=== PATIENT | female | born 1975 | race African-American/Black ===

== ENCOUNTER → 2017-04-30 | Outpatient (CLI) | payer OTHER ==
--- NOTE | ~2017-04-30 | US6 ---
[facility] A Service of [facility] & [facility] RADIOLOGY TEXT RESULTS PATIENT: MANUEL LAM LOCATION: [facility] : 79 UNIT #: [id number] AGE: [address]: Betty Buckner MD SEX: F ORDER DR: [id number] [facility] [address] [place], [place] [address] [id number] O MR#: [id number] Acc #: [id number] NAME: MANUEL LAM : 1975 SEX: F STUDY DATE/TIME: 04/30/2017 9:51 UNIT: [facility] ROOM: STUDY DESCRIPTION: US Abdominal Limited Attending Physician: Betty Buckner M.D. Ordering Physician: Betty Buckner M.D. Primary Care Physician: Betty Buckner M.D. MEDICAL IMAGING REPORT This report is preliminary unless electronic signature is present EXAM Right upper quadrant ultrasound, 04/30/2017. HISTORY Abnormally elevated liver enzymes, labs drawn 1 week ago. Abdominal bloating and distension for 1 week. FINDINGS The liver is homogeneous in echotexture and demonstrates no cystic or solid mass lesions. The intra and extrahepatic bile ducts are not dilated. The gallbladder is surgically absent as per patient history. The common duct measures 4 mm. The pancreas and right kidney are normal. IMPRESSION Surgical absence of the gallbladder. Otherwise, negative right upper quadrant ultrasound. Dictated by... Hermes Wolf M.D. THIS IS AN ELECTRONICALLY VERIFIED REPORT Hermes Wolf M.D. at 05/02/2017 7:46 AM CATHERINE/drea TD: 05/01/2017 00:45 JOB #: [id number] MEDICAL IMAGING REPORT Page 1 of 1 COPY
== END | disposition home or self-care (01) ==
LOC: CWCC 09:33
DX: R10.32 Left lower quadrant pain (principal); Z90.49 Acquired absence of other specified parts of digestive tract
CPT/HCPCS: 76705